=== PATIENT | male | born 1965 | race Caucasian/White ===

== ENCOUNTER 2019-07-16 07:41 | Outpatient (RCR) | payer BC, SELFPAY ==
[2019-07-16 08:01] VITALS: BMI 42.9
== END 2019-10-14 23:59 | disposition home or self-care (01) ==
LOC: ANHDMC 07:41
PROVIDERS: PCP Family Medicine; Visit Provider Family Medicine
DX: E11.9 Type 2 diabetes mellitus without complications (principal); Z71.89 Other specified counseling; Z71.3 Dietary counseling and surveillance
CPT/HCPCS: 97802; G0108

== ENCOUNTER 2023-05-15 16:28 | Outpatient (CLI) | payer BC, SELFPAY ==
--- NOTE | ~2023-05-15 | XR_ITS ---
AP and lateral views of the left hip Clinical history: Pain Findings: No acute fracture or dislocation is seen. Osseous alignment is anatomic. The left hip joint and left SI joint spaces are preserved. Soft tissues are unremarkable. Impression: No significant abnormality is seen. Reviewed, dictated and finalized at [facility]. [employer] Impression: No significant abnormality is seen.
== END 2023-05-15 16:29 | disposition home or self-care (01) ==
LOC: ANHIMG 16:35
PROVIDERS: PCP Family Medicine; Visit Provider Family Medicine
DX: M16.12 Unilateral primary osteoarthritis, left hip (principal)
CPT/HCPCS: 73502

== ENCOUNTER 2023-08-30 05:51 | Day surgery (SDC) | payer OTHER, SELFPAY ==
[2023-07-14 13:25] VITALS: BMI 39.0
[2023-08-09 13:46] VITALS: BMI 38.9
--- NOTE | 2023-08-30 05:24 | WPDANESEPPF ---
Anes - Initial Pre Proc Eval Procedure: Operation Date: 08/30/23 07:30 Proposed Procedures p Screening Colonoscopy - Cristóbal Agrawal MD Date/Time: 08/30/23 05:24 Surgeon: Cristóbal Agrawal MD Pre Op Diagnosis: Neoplasm Screening Patient Data Age: 58 Gender: M Height: 1.78 m Weight: 123.3 kg Allergies Allergy/AdvReac Type Severity Reaction Status Date / Time No Known Allergies Allergy Verified 08/30/23 06:15 Home Medications Medication Instructions Recorded Confirmed Type amlodipine 10 mg tablet 10 mg PO DAILY #90 tabs 07/24/23 08/30/23 Rx atorvastatin 80 mg tablet 80 mg PO DAILY #90 tabs 07/24/23 08/30/23 Rx clonidine HCl 0.1 mg tablet 0.1 mg PO QAM #90 tabs 07/24/23 08/30/23 Rx lisinopril 20 2 tablet PO QAM #180 tabs 07/24/23 08/30/23 Rx mg-hydrochlorothiazide 12.5 mg tablet metoprolol succinate 200 mg See Rx Instructions .Route 07/24/23 08/30/23 Rx tablet,extended release 24 hr .COMPLEX #90 tabs flash glucose sensor (FreeStyle #1 ea 07/30/23 Rx Gabbi 14 Day Sensor kit) empagliflozin 12.5 mg-metformin ER 1 tablet PO DAILY #90 ea 07/31/23 08/30/23 Rx 1,000 mg tablet,extended rel 24 hr (Synjardy XR) Patient hx anesthesia problems: none Family hx anesthesia problems: none Results Review: All pre-operative results and documents have been reviewed as part of the pre-operative evaluation. [facility] Past Medical History Medical History (Updated 08/30/23 @ 05:24 by Edi Seymour DO) BMI 39.0-39.9,adult BMI greater than 40 Essential (primary) hypertension Mixed hyperlipidemia Osteoarthritis of left hip Screening for prostate cancer Type 2 diabetes mellitus without complications Surgical History Surgical History H/O hernia repair Family History Family History Mother Hypertension Family history of malignant neoplasm of breast in first degree relative Breast cancer Pancreatic cancer Father Lung cancer Tobacco abuse Sibling No problems noted. 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 Informed Consent: The patient's anesthetic plan and its attendant risks and benefits were discussed with the patient/family/POA. Questions were solicited and answers provided to the satisfaction of the patient/family/POA.
[2023-08-30 06:13] VITALS: BP 181/103; PULSE 81; RESP 14; TEMP 36.5; O2SAT 97
[2023-08-30] MEDS: LACTATED RINGERS 1,000 ML 150 ML IV CONT (06:32)
--- NOTE | 2023-08-30 07:06 | SUR.PREOP ---
Pt pre-op BG 168, BP 181/103, Dr. Seymour notified, no further orders at this time.
--- NOTE | 2023-08-30 07:14 | PM.HPGS ---
History of Present Illness History of Present Illness Consent: Risks, benefits, and alternatives have been discussed and questions answered. Patient agrees to proceed with procedure. Chief complaint: Neoplasm Screening Narrative: Finesse Goldman is a 58 year old male presents for screening colonoscopy. Patient has a history of adenomatous colon polyp removed from the colon in 2017. Patient reports that his current weight appetite and bowel movements are normal. He denies abdominal pain. Patient has had no bleeding. Family history is noncontributory. Review of Systems Review of Systems: Review of systems is noncontributory. [facility] Past Medical History Medical History (Updated 08/30/23 @ 07:16 by Cristóbal Agrawal MD) BMI 39.0-39.9,adult BMI greater than 40 Essential (primary) hypertension Mixed hyperlipidemia Osteoarthritis of left hip Screening for prostate cancer Type 2 diabetes mellitus without complications Surgical History Surgical History H/O hernia repair Family History Family History Mother Hypertension Family history of malignant neoplasm of breast in first degree relative Breast cancer Pancreatic cancer Father Lung cancer Tobacco abuse Sibling No problems noted. 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 Gender identity (if verbalized by the patient): Male Spiritual care concerns: No Meds Home Medications and Allergies Home Medications Medication Instructions Recorded Confirmed Type amlodipine 10 mg tablet 10 mg PO DAILY #90 tabs 07/24/23 08/30/23 Rx atorvastatin 80 mg tablet 80 mg PO DAILY #90 tabs 07/24/23 08/30/23 Rx clonidine HCl 0.1 mg tablet 0.1 mg PO QAM #90 tabs 07/24/23 08/30/23 Rx lisinopril 20 2 tablet PO QAM #180 tabs 07/24/23 08/30/23 Rx mg-hydrochlorothiazide 12.5 mg tablet metoprolol succinate 200 mg See Rx Instructions .Route 07/24/23 08/30/23 Rx tablet,extended release 24 hr .COMPLEX #90 tabs flash glucose sensor (FreeStyle #1 ea 07/30/23 Rx Gabbi 14 Day Sensor kit) empagliflozin 12.5 mg-metformin ER 1 tablet PO DAILY #90 ea 07/31/23 08/30/23 Rx 1,000 mg tablet,extended rel 24 hr (Synjardy XR) Allergies Allergy/AdvReac Type Severity Reaction Status Date / Time No Known Allergies Allergy Verified 08/30/23 06:15 Vital Signs Vital Signs - 24 hr 08/30/23 06:13 Temperature 97.7 F Pulse Rate 81 Respiratory Rate 14 Blood Pressure 181/103 H Pulse Oximetry 97 Oxygen Delivery Room Air Exam Narrative: Physical exam reveals patient to be alert. Vital signs stable. HEENT exam is unremarkable. Patient is anicteric. Lungs are clear to auscultation and to percussion is without murmur or extra sounds. Abdomen bowel sounds are present soft nontender with no organomegaly. Digital external rectal exam is normal. Assessment and Plan Assessment and plan (1) History of colon polyps: Code(s): Z86.010 - Personal history of colonic polyps Status: Acute Assessment and Plan: Has a history of a benign tubular adenoma removed from the colon in 2017. Plan for surveillance exam at 5 year intervals.
[2023-08-30 07:36] LABS: Glucose Point of Care 168 mg/dl (65-105)
[2023-08-30 07:40] VITALS: BP 95/77; PULSE 66; RESP 16; O2SAT 97
[2023-08-30 07:50] VITALS: BP 101/58; PULSE 65; RESP 16; O2SAT 97
[2023-08-30 08:00] VITALS: BP 124/69; PULSE 65; RESP 16; O2SAT 97
--- NOTE | 2023-08-30 13:19 | WPDANESPN ---
Anes - Prog Note Post-Op Date/Time: 08/30/23 13:19 Cardiovascular status: normal Respiratory status: normal Airway patency: baseline Mental status: baseline Post-Op hydration status: normal Vital Signs: Last Vital Signs Temp 36.5 C 08/30/23 06:13 Pulse 65 08/30/23 08:00 Resp 16 08/30/23 08:00 BP 124/69 08/30/23 08:00 Pulse Ox 97 08/30/23 08:00 O2 Del Method Room Air 08/30/23 08:00 Pain Score (VAS): 0 I/O: Intake & Output 08/29/23 08/30/23 08/30/23 23:59 07:59 15:59 Intake Total 400 250 Balance 400 250 08/30/23 06:28 POC Capillary Glucose 168 H Post-procedural complaints: none Patient Feedback: Patient satisfied with anesthetic care. Other Findings: Patient vital signs back to baseline. Patient denies nausea and vomiting. Patient's pain under control. Patient OK for discharge.
== END 2023-08-30 08:06 | disposition home or self-care (01) ==
PROVIDERS: PCP Family Medicine; Visit Provider Internal Medicine Gastroenterology
PROC: 0DJD8ZZ Inspection of Lower Intestinal Tract, Via Natural or Artificial Opening Endoscopic (ICD-10-PCS; CPT 45378; principal; 2023-08-30 07:30)
DX: Z86.010 Personal history of colon polyps (principal); D12.8 Benign neoplasm of rectum; K64.8 Other hemorrhoids
CPT/HCPCS: 45380

== ENCOUNTER 2023-08-30 07:00 | Outpatient (NON) | payer OTHER, SELFPAY | END 2023-08-30 07:01 | disposition home or self-care (01) | PROVIDERS: PCP Family Medicine; Visit Provider Internal Medicine Gastroenterology | DX: K62.1 Rectal polyp (principal); Z86.010 Personal history of colon polyps | CPT/HCPCS: 88305 ==

== ENCOUNTER 2024-05-10 09:47 | Outpatient (CLI) | payer OTHER, SELFPAY ==
--- NOTE | ~2024-05-10 | MR_ITS ---
EXAMINATION: MR hip LT wo con DATE: 05/10/2024 11:01 INDICATION: Left hip pain TECHNIQUE: Magnetic resonance imaging (MRI) of the left hip was performed without intravenous contra st. Sequences included full-field axial PD-weighted FS FSE and T1-weighted FSE, coronal of the pelvis with PD-weighted FS FSE, T2-weighted FSE and T1-weighted FSE, small field of view of the left hip w ith axial PD-weighted FS FSE, sagittal PD-weighted FS FSE, coronal PD-weighted FS FSE and coronal T2 weighted FSE. Additional radial T1-weighted FGR oriented orthogonal to the acetabular rim were obtai antwan for evaluation of the labrum. COMPARISON: Left hip radiographs dated 05/15/2023 FINDINGS: Bones/labrum/cartilage: Alignment is normal. No fracture, avascular necrosis or pathologic marrow replacing process. 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 There is a tear at the anterosuperior left acet abular labrum. There is also mild osteoarthritis with mild posterior predominant nonuniform joint spa ce narrowing with partial thickness cartilage loss but without degenerative subchondral changes. Smal l marginal osteophytes along the femoral head. Fluid: Symmetric physiologic amount of fluid within both hip joints. Soft tissues: Normal and symmetric muscle bulk and signal in the pelvis and visualized proximal thighs. The iliopso as, gluteal and proximal hamstring tendons are normal. Limited evaluation of visceral organs of the p gamaliel is unremarkable. Small fat-containing right inguinal hernia. No pathologically enlarged pelvic/ inguinal lymphadenopathy. IMPRESSION: 1. Mild left hip osteoarthritis with tear at the anterosuperior left acetabular labrum. 2. Small fat-containing right inguinal hernia. Reviewed, dictated and finalized at location A.
== END 2024-05-10 09:48 | disposition home or self-care (01) ==
LOC: GOSHIMG 09:52
PROVIDERS: PCP Family Medicine; Visit Provider Family Medicine
DX: M16.12 Unilateral primary osteoarthritis, left hip (principal); K40.90 Unilateral inguinal hernia, without obstruction or gangrene, not specified as recurrent; S73.192A Other sprain of left hip, initial encounter; X58.XXXA Exposure to other specified factors, initial encounter
CPT/HCPCS: 73721